=== PATIENT | female | born 1990 | race Two or more races ===

== ENCOUNTER 2017-09-16 08:50 | Emergency (ER) | payer MEDICAID, OTHER ==
[~2017-09-16] VITALS: Ht 172.7 cm; Wt 79.4 kg
[2017-09-16 10:09] LABS: Basophils # (auto) 0 uL; Basophils % (auto) 0.3 % (0.0-2.0); Eosinophils # (auto) 0 uL; Eosinophils % (auto) 0.7 % (0.0-7.0); Hematocrit 38.3 % (36.0-46.0); Hemoglobin 12.6 g/dL (12.2-16.2); Lymphocytes # (auto) 0.4 uL; Lymphocytes % (auto) 5.3 % (10.0-50.0); Mean Corpuscular Hemoglobin 28.8 pg (28.0-32.0); Mean Corpuscular Hgb Conc. 32.9 g/dL (32.0-36.0); Mean Corpuscular Volume 87.6 fL (80.0-100.0); Monocytes # (auto) 0.3 uL; Monocytes % (auto) 4.8 % (0.0-12.0); Neutrophils # (auto) 6.1 uL; Neutrophils % (auto) 88.9 % (37.0-80.0); Platelet Count (auto) 163 10^3/uL (140-450); Red Blood Cells 4.38 10^6/uL (4.0-5.20); Red Cell Distribution Width 13.3 % (11.8-14.3); White Blood Cell 6.9 10^3/uL (4.4-10.8)
[2017-09-16 10:11] LABS: Alanine Aminotransferase 20 U/L (13-56); Albumin 3.6 g/dL (3.4-5.0); Alkaline Phosphatase 50 U/L (45-117); Anion Gap 6 (5-15); Aspartate Aminotransferase 12 U/L (15-37); BUN/Creatinine Ratio 11.5; Bilirubin, Total 0.3 mg/dL (0.2-1.0); Blood Alcohol < 3.0 mg/dL (0-5); Blood Urea Nitrogen 10 mg/dL (7-18); Carbon Dioxide 24 mmol/L (21-32); Chloride 107 mmol/L (98-107); GFR African American 100 mL/min; GFR Non-African American 83 mL/min; Glucose 150 mg/dL (74-106); Potassium 4.5 mmol/L (3.5-5.1); Sodium 137 mmol/L (136-145); Total Protein 6.9 g/dL (6.4-8.2)
[2017-09-16 13:04] VITALS: BP 108/52
== END 2017-09-16 13:28 | disposition home or self-care (01) ==
LOC: ER 08:50
DX: J40 Bronchitis, not specified as acute or chronic (principal)
CPT/HCPCS: 36415; 70450; 71045; 80053; 80320; 84702; 85025

== ENCOUNTER 2018-04-12 14:38 | Emergency (ER) | payer OTHER, MEDICAID ==
[~2018-04-12] VITALS: Ht 162.6 cm; Wt 78.9 kg
[2018-04-12 15:17] LABS: Urine Bacteria FEW /hpf (None Seen); Urine Blood 3+ /uL (Negative); Urine Mucus FEW (None Seen); Urine Specific Gravity 1.027 (1.001-1.035); Urine WBC 93 /hpf (0 - 5)
[2018-04-12 18:37] VITALS: BP 118/60
== END 2018-04-12 19:25 | disposition home or self-care (01) ==
LOC: ER 14:38
DX: O20.0 Threatened abortion (principal); O23.41 Unspecified infection of urinary tract in pregnancy, first trimester; Z3A.00 Weeks of gestation of pregnancy not specified
CPT/HCPCS: 36415; 81001; 84702

== ENCOUNTER 2024-05-20 20:17 | Emergency (ER) | payer MEDICAID, OTHER ==
[~2024-05-20] VITALS: Ht 160 cm; Wt 77.2 kg
[2024-05-20 22:29] VITALS: BP 116/71; PULSE 60; RESP 16; TEMP 98.3; O2SAT 60
[2024-05-20] MEDS ORDERED: BENZ100C97 PO (22:53)
[2024-05-21] MEDS ORDERED: AZIT500T PO (00:13)
[2024-05-21] MEDS ORDERED: ALBUAER3 IN (00:13)
== END 2024-05-21 00:21 | disposition home or self-care (01) ==
LOC: ER 20:17
DX: J98.8 Other specified respiratory disorders (principal); R05.9 Cough, unspecified
CPT/HCPCS: 71046

== ENCOUNTER 2025-05-08 11:43 | Outpatient (CLI) | payer OTHER ==
[~2025-05-08 11:43] MED LIST: ALBUAER3 IN; AZIT500T PO; BENZ100C97 PO
== END 2025-05-08 17:00 | disposition home or self-care (01) ==
LOC: LAB 11:43
PROVIDERS: ATTEND Registered Nurse
DX: Z01.84 Encounter for antibody response examination (principal)
CPT/HCPCS: 86762